=== PATIENT | male | born 1955 ===

== ENCOUNTER 2017-01-02 14:45 | Emergency (ER) | payer OTHER ==
--- NOTE | 2017-01-02 16:16 | C.PDOC ---
History Of Present Illness 61 y/o male presents to ED with complaints of not being able to hear from left ear for 1 day. Patient reports using Q tip with unknown drops from drug store with no improvement. Patient denies headache, dizziness, fever or any other complaints at this time. Time Seen by Provider: 01/02/17 15:23 Chief Complaint (Nursing): ENT Problem History Per: Patient History/Exam Limitations: None Onset/Duration Of Symptoms: Days Current Symptoms Are (Timing): Still Present Past Medical History Reviewed: Historical Data, Nursing Documentation, Vital Signs Vital Signs: Last Vital Signs Temp 97.6 F 01/02/17 16:33 Pulse 60 01/02/17 16:33 Resp 18 01/02/17 16:33 BP 156/90 H 01/02/17 16:33 Pulse Ox 97 01/05/17 13:05 Family History: States: No Known Family Hx - Social History Hx Alcohol Use: Yes Hx Substance Use: No - Immunization History Hx Tetanus Toxoid Vaccination: No Hx Influenza Vaccination: No Hx Pneumococcal Vaccination: No Review Of Systems Constitutional: Negative for: Fever, Chills Skin: Negative for: Rash Neurological: Negative for: Weakness, Numbness Physical Exam - Physical Exam Appears: Non-toxic, No Acute Distress Skin: Normal Color, Warm Head: Atraumatic, Normacephalic Ear(s): Left: Other (Mild erythema and whitish debris/cerumen in canal) Oral Mucosa: Moist Extremity: Normal ROM Neurological/Psych: Oriented x3, Normal Speech, Normal Cognition ED Course And Treatment O2 Sat by Pulse Oximetry: 97 Medical Decision Making Medical Decision Making: left ear irrigated with warm tap water and h202. no cerumen return. small amount of whitish material on plastic scoop removed; but more present. canal erythematous; will d/c with cortisporin otic and pmd/ent f/u/ Disposition Counseled Patient/Family Regarding: Diagnosis, Need For Followup, Rx Given - Disposition Referrals: [facility] [Outside] [facility] [Outside] Disposition: HOME/ ROUTINE Disposition Time: 16:16 Condition: STABLE Additional Instructions: Use drops as directed. Follow up in medical clinic in a few days; call for appointment or stop into clinic now to make one. Prescriptions: Neomycin/Polymyxin/Hydrocortis [Cortisporin Otic Susp] 4 drop QID #1 bottle Instructions: Otitis Externa (ED), Otitis Media (ED) - Clinical Impression Clinical Impression: Otitis externa of left ear - PA / CRANK HAND / Resident Statement MD/DO has reviewed & agrees with the documentation as recorded. - Scribe Statement The provider has reviewed the documentation as recorded by the Riccardoibandres Buchanan All medical record entries made by the Lisa were at my direction and personally dictated by me. I have reviewed the chart and agree that the record accurately reflects my personal performance of the history, physical exam, medical decision making, and the department course for this patient. I have also personally directed, reviewed, and agree with the discharge instructions and disposition.
[2017-01-02 16:34] VITALS: BP 156/90; PULSE 60; RESP 18; TEMP 97.6
[2017-01-02 16:35] VITALS: O2SAT 97
== END 2017-01-02 16:34 | disposition home or self-care (01) ==
LOC: C.ER 14:45
DX: H60.92 Unspecified otitis externa, left ear (principal)